=== PATIENT | male | born 1950 | race Caucasian/White ===

== ENCOUNTER 2021-04-14 18:01 | Emergency (ER) | payer BC, MEDICARE ==
[~2021-04-14] VITALS: Ht 177.8 cm; Wt 72.6 kg
[~2021-04-14 18:01] MED LIST: ALFUZOSIN HCL10 MG PO; ALLOPURINOL300 MG PO; ASPIRIN325 MG PO; CLONAZEPAM1 MG PO; CRESTOR20 MG PO; FLEXERIL PO; GABAPENTIN600 MG PO; HYDROCODON-ACE1 EAC9 PO; LEVOTHYROXINE50 MCG PO; METFORMIN HCL500 MG PO; METOPROLOL SUCC50 MG PO; PLAVIX75 MG PO; VITAMIN D32000 UNIT PO; ZYRTEC10 MG PO
[2021-04-14] MEDS ORDERED: MORPHINE SULFATE INJ 4 MG/ML INJ 1ML IM STA (18:18)
[2021-04-14] MEDS ORDERED: MORPHINE SULFATE INJ 4 MG/ML INJ 1ML ONE (18:30)
[2021-04-14] MEDS ORDERED: LEVOFLOXACIN250 MG PO ×2 (20:39→21:19)
[2021-04-14] MEDS ORDERED: VICODIN HP 10-1 EAC1 PO (20:39)
[2021-04-14] MEDS ORDERED: LEVOFLOXACIN 500 MG TAB PO ONE (20:45)
[2021-04-14] MEDS ORDERED: HYDROCODONE/APAP 5MG-325MG TAB PO ONE (20:45)
[2021-04-14] MEDS ORDERED: LEVOFLOXACIN 500 MG TAB ONE (20:46)
[2021-04-14 20:47] VITALS: BP 162/92
[2021-04-14] MEDS ORDERED: HYDROCODONE/APAP 5MG-325MG TAB ONE (20:48)
[2021-04-14] MEDS ORDERED: HYDROCODON-ACE1 EAC8 PO (21:19)
== END 2021-04-14 20:47 | disposition home or self-care (01) ==
LOC: FSED 18:15
DX: N45.1 Epididymitis (principal); N50.811 Right testicular pain; Z85.51 Personal history of malignant neoplasm of bladder; Z95.5 Presence of coronary angioplasty implant and graft
CPT/HCPCS: 76870; 87086; 99283; J2270